=== PATIENT | female | born 1975 | race Two or more races ===

== ENCOUNTER 2023-02-23 18:53 | Emergency (ER) | payer OTHER ==
[~2023-02-23] VITALS: Ht 170.2 cm; Wt 93.9 kg
[2023-02-23] MEDS ORDERED: SYNTHROID50 MCG PO (19:08)
== END 2023-02-23 21:40 | disposition home or self-care (01) ==
LOC: ER 18:53
DX: G43.909 Migraine, unspecified, not intractable, without status migrainosus (principal); Z20.822 Contact with and (suspected) exposure to COVID-19

== ENCOUNTER 2024-11-05 09:27 | Outpatient (CLI) | payer OTHER ==
[~2024-11-05 09:27] MED LIST: SYNTHROID50 MCG PO
== END 2024-11-05 09:30 | disposition home or self-care (01) ==
LOC: RAD 09:27
DX: M25.50 Pain in unspecified joint (principal); G89.29 Other chronic pain; K21.9 Gastro-esophageal reflux disease without esophagitis; M25.552 Pain in left hip; M25.551 Pain in right hip; M54.50 Low back pain, unspecified; M79.10 Myalgia, unspecified site; R69 Illness, unspecified